=== PATIENT | female | born 1990 | race Caucasian/White ===

== ENCOUNTER 2017-10-15 17:55 | Emergency (ER) | payer BC, OTHER ==
[2017-10-15] MEDS: NORCO 5/325MG TABLET (BULK FOR ED) PO (19:37)
== END 2017-10-15 19:42 | disposition home or self-care (01) ==
LOC: M ED 17:55
DX: H60.91 Unspecified otitis externa, right ear (principal); T85.698A Other mechanical complication of other specified internal prosthetic devices, implants and grafts, initial encounter; Y72.2 Prosthetic and other implants, materials and accessory otorhinolaryngological devices associated with adverse incidents; E03.9 Hypothyroidism, unspecified; Z79.899 Other long term (current) drug therapy
CPT/HCPCS: 99283